=== PATIENT | female | born 1940 | race Native Hawaiian/Other Pacific Islander ===

== ENCOUNTER 2016-09-03 13:06 | Outpatient (CLI) | payer OTHER ==
[~2016-09-03 13:06] MED LIST: METF500T PO
[2016-09-03 14:20] LABS: PLATELET COUNT 242 K/uL (152-353)
[2016-09-03 14:59] LABS: POTASSIUM 4.6 mmol/L (3.6-5.2)
== END 2016-09-03 23:00 | disposition home or self-care (01) ==
LOC: LAB 13:06
PROVIDERS: Internal Medicine
DX: E11.40 Type 2 diabetes mellitus with diabetic neuropathy, unspecified (principal); I10 Essential (primary) hypertension; M62.81 Muscle weakness (generalized)
CPT/HCPCS: 80048; 82040; 84100; 84550; 85027

== ENCOUNTER 2016-11-06 12:46 | Outpatient (CLI) | payer OTHER ==
[2016-11-06 13:54] LABS: PLATELET COUNT 232 K/uL (152-353)
[2016-11-06 14:56] LABS: POTASSIUM 4.3 mmol/L (3.6-5.2)
== END 2016-11-06 19:40 | disposition home or self-care (01) ==
LOC: LAB 12:46
PROVIDERS: Internal Medicine
DX: I12.9 Hypertensive chronic kidney disease with stage 1 through stage 4 chronic kidney disease, or unspecified chronic kidney disease (principal); N18.4 Chronic kidney disease, stage 4 (severe)
CPT/HCPCS: 80048; 80061; 82040; 84100; 84550; 85027